=== PATIENT | male | born 1950 | race Caucasian/White ===

== ENCOUNTER 2024-06-01 10:14 | Emergency (ER) | payer BC, MEDICARE ==
[~2024-06-01] VITALS: Ht 177.8 cm; Wt 83.5 kg
[2024-06-01 11:15] LABS: BASOPHILS # (AUTO) 0.1 K/uL (0.0-0.2); BASOPHILS % (AUTO) 0.8 % (0.0-2.0); EOSINOPHILS # (AUTO) 0.1 K/uL (0.0-0.7); EOSINOPHILS % (AUTO) 1.2 % (0.0-6.0); HEMATOCRIT 41 % (39-51); LYMPHOCYTES # (AUTO) 1.5 K/uL (0.8-4.8); MEAN CORPUSCULAR HEMOGLOBIN 32 PG (26.0-33.0); MEAN CORPUSCULAR HGB CONC 34 g/dl (31.0-36.0); MEAN CORPUSCULAR VOLUME 93 fL (80-96); MONOCYTES # (AUTO) 0.7 K/uL (0.1-1.30); MONOCYTES % (AUTO) 10.6 % (2.0-12.0); NEUTROPHILS # (AUTO) 4.3 K/uL (1.8-8.9); NEUTROPHILS % (AUTO) 64.4 % (43.0-81.0); PLATELET COUNT (AUTO) 227 K/uL (150-450); RED BLOOD CELL COUNT(AUTO) 4.42 MIL/uL (4.5-6.0); RED CELL DISTRIBUTION WIDTH 13.1 % (11.5-15.0); WHITE BLOOD COUNT (AUTO) 6.6 K/uL (4.3-11.0)
[2024-06-01 11:25] LABS: CALCIUM, SERUM 8.6 mg/dL (8.5-10.1); CREATININE 1.2 mg/dL (0.6-1.3); POTASSIUM 4.6 mmol/L (3.5-5.1)
[2024-06-01] MEDS ORDERED: IOHEXOL-350 100 ML VIAL IV ONE (11:28)
[2024-06-01 11:29] LABS: PARTIAL THROMBOPLASTIN TIME 28.5 SEC (24.3-34.3); PROTHROMBIN TIME 10.6 SECS (9.2-11.1)
[2024-06-01] MEDS ORDERED: CT SWABBABLE VALVE TRANS SET 1 EA INFUS.SET MC ONE (11:31)
[2024-06-01] MEDS ORDERED: IV NS 0.9% 250 ML IV ONE (11:32)
[2024-06-01] MEDS ORDERED: NICARDIPINE IN DEXTROSE,ISO-OS 200 ML IV ONE ×2 (11:41→15:21)
[2024-06-01] MEDS: NICARDIPINE IN NACL, ISO-OSM 200 ML IV PRN (11:55)
[2024-06-01 12:11] LABS: APPEARANCE,URINE CLEAR (CLEAR); BILIRUBIN,URINE NEGATIVE (NEGATIVE); BLOOD, URINE NEGATIVE Ery/uL (NEGATIVE); COLOR,URINE YELLOW (YELLOW); KETONES,URINE NEGATIVE (NEGATIVE); LEUKOCYTE ESTERASE ,URINE NEGATIVE (NEGATIVE); NITRITE, URINE NEGATIVE (NEGATIVE); PROTEIN,URINE NEGATIVE (NEGATIVE); UGLUCOSE NEGATIVE (NEGATIVE); UROBILINOGEN,URINE 0.2 EU/dL (0.2)
[2024-06-01 14:00] VITALS: TEMP 98
[2024-06-01 16:00] VITALS: BP 131/66; O2SAT 95
== END 2024-06-01 16:46 ==
LOC: ER 11:11
DX: I61.9 Nontraumatic intracerebral hemorrhage, unspecified (principal); R53.1 Weakness; I16.0 Hypertensive urgency; I10 Essential (primary) hypertension; R20.0 Anesthesia of skin; I70.90 Unspecified atherosclerosis; R20.2 Paresthesia of skin
CPT/HCPCS: 99291; 70450; 93005; 70498; 70496; 85025; 80048; 81003; 36415; 85730; J7050; A4349; A4223; Q9967